=== PATIENT | male | born 1960 | race Caucasian/White ===

== ENCOUNTER 2025-02-09 10:12 | Emergency (ER) | payer OTHER, SELFPAY ==
--- NOTE | 2025-02-09 10:23 | ED.EYEPROB ---
HPI - Eye Problem General Chief complaint: Eye Problems Stated complaint: LT Eye Problems Time Seen by Provider: 02/09/25 10:29 Source: patient Mode of arrival: ambulatory Limitations: no limitations History of Present Illness HPI Narrative: 64-year-old male presented for complaint of left eye redness, swelling, and discomfort to the lower lid. Endorses matted shut this morning when he woke. Denies photophobia, vision changes, headache, rash, eye pain, injury or foreign body. Denies recent illness. Denies contacts. chief complaint: eye pain Related Data Allergies Allergy/AdvReac Type Severity Reaction Status Date / Time No Known Allergies Allergy Verified 02/09/25 10:19 Review of Systems Review of Systems: CONSTITUTIONAL: Denies body aches, fever, chills EYES:Endorses swelling, redness and pain to left lower eye; Denies visual changes, FB sensation, photophobia ENT: Denies rhinorrhea, congestion, sore throat, or otalgia. CARDIOVASCULAR: Denies chest pain, palpitations RESPIRATORY: Denies cough or dyspnea. SKIN: Denies rash, itching, or wounds. MUSCULOSKELETAL: Denies back pain, joint pain, or myalgia. NEUROLOGIC: Denies headache, numbness, tingling, or weakness. All systems reviewed & are unremarkable except as noted in HPI and below PMFSH Comments At time of signature, I have reviewed and agree with nursing past medical, surgical, social and family history unless otherwise noted. Please see nursing chart for further information. There is no relevant family history pertinent to the presenting complaint Exam Narrative: GENERAL: Well-appearing HEAD: Normocephalic, atraumatic. EYES: Left lower eye lid swelling and redness, tender, pustule noted c/w internal hordeolum, drainage noted. No conjunctival injection, PERRLA, EOMI. Lid eversion shows no FB. ENT: Mucous membranes pink and moist. No rhinorrhea. TMs baseline post surgeries bilaterally. Throat normal. Uvula midline. CHEST: Clear to auscultation. HEART: Regular rate and rhythm. SKIN: Warm, dry, no rash. Normal skin turgor. NEURO: No focal deficits. Alert and oriented x3 PSYCH: Normal affect. Course Course Emergency Course: Patient is aware of diagnosis, understands and agrees to treatment plan. Anticipatory guidance given. Patient agrees to follow-up as directed and is aware of reasons to seek care at the emergency department. Portions of this record may have been created with voice recognition software Level of Care: Express Care Visit MDM - Eye Problem MDM Narrative Medical decision making narrative: Discussed physical exam findings consistent with left internal hordeolum. Will send antibiotic for the periorbital swelling, patient is going out of town in 2 days. Advised supportive measures and signs/symptoms to go to the ER. Pt is appropriate for outpt treatment and f/u. Differential Diagnosis Differential diagnosis: Likely corneal abrasion, conjunctivitis, acute iritis and other Discharge Plan Discharge Clinical Impression: Internal hordeolum of left eye Patient Disposition: Home Condition: Stable Instructions: Antibiotic Form, [facility] (ED) Additional Instructions: Apply warm, moist compresses on the affected area frequently (for 5 to 10 minutes three to five times per day) in order to help with drainage. Massage and gentle wiping of the affected eyelid after the warm compress can also help with drainage. You can use baby shampoo to wash the eye area Take medication as directed. If the lesion does not improve within one week, please follow up with an fuel cell engineer for further management. Go to the ER for any worsening symptoms or concerns [facility] [phone] [facility] [phone] [facility] [phone] [facility] [phone] Patient Language: Fijian Prescriptions: New cephalexin 500 mg capsule 500 mg PO Q6H 5 Days Qty: 20 0RF Follow-up/Referrals: PHYSICIAN,SOOT BLOWER [Primary Care Provider] - Time of Disposition: 10:37
--- OUTSIDE RECORDS SUMMARY | 2025-02-09 10:23 | XMS_ITS | Encounter Summary ---
Author Organization [facility] Health Address [address] [facility] [place] [address] Care Team Providers Care Automation Qa Analyst Name Role Phone Roro Boles [place] KEY-TRANSITION ADVISOR Primary C are Provider Tracie Rodriguez MD Primary Care Provider [phone] Encounter Details Date Type Department Care Team (Late st Contact Info) Description 12/26/2021 Lab Requisition [facility] [address] [facility], [place] [id number] [place] [id number] [address] Social History Tobacco Use Types Packs/Day Years Used Date Smoking Tobacco: Never Assessed Sex and Gender Information Value Date Recorded Sex Assigned at Not on file Legal Sex Male 2:01 PM CDT Gender Identity Not on file Sexual Orientation Not on file documented as of this encounter Plan of Treatment Not on file documented as of this encounter Procedures Procedure Name Priority Date/Time Associated Diagnosis Comments DERMATOPATHOLOGY Routine 12/25/2021 12:0 0 AM CDT documented in this encounter Results * DERMATOPATHOLOGY (12/25/2021 12:00 AM CDT) Case Report Dermatopathology Report Case: [id number] Authorizing Provider: Brenda Hui MD Collected: 12/25/2021 12:00 AM Ordering Location: [facility] Received: 12/26/2021 02:29 PM Pathologist: Ольга Hazel MD Specimen: Skin, right upper back 2 11:16 AM T DERMATOPATHOLOGY LABORATORY Final Diagnosis Specimen A. 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 2 11:16 AM T DERMATOPATHOLOGY LABORATORY Gross Description Specimen A: Received is one formalin filled container labeled with the patient's name and designated right upper back. The specimen consists of a shave biopsy measuring [id number]. Jar 0. 11:16 AM T DERMATOPATHOLOGY LABORATORY Microscopic Description Specimen A. SKIN, right upper back: The epidermis shows parakeratosis, full thickness disorderly maturation of keratinocytes, mitoses at different levels, and dyskeratotic cells. There is prominent pigmentation in some of the keratinocytes. This case was also reviewed by Dr. Sherley Cyr, who agrees. 2 11:16 AM T DERMATOPATHOLOGY LABORATORY Disclaimer An external and internal positive and negative controls are appropriate for the histochemical, immunohistochemical and immunofluorescence stain(s) in this case (if any), except where stated explicitly. The performance characteristics of the stain(s) cited in this report were developed and its performance characteristic determined by the Dermatopathology Laboratory at [facility], directed by Dr. Jayda Cyr. These tests need not be, and therefore are not, approved by the [place] Food and Drug Administration. The tests are used for clinical purposes. Billing Codes Specimen Charges Stain Charges 11670 1 2 11:16 AM CDT DERMATOPATHOLOGY LABORATORY Embedded Images 2 11:16 AM CDT DERMATOPATHOLOGY LABORATORY Pathology/Cytolog y TISSUE SPECIMEN FROM SKIN / Unknown 12/25/2021 12/26/2021 2:29 PM CDT us Brenda Guajardo MD LAB - PATHOLOGY/CYTOLOGY ORDER JULISSA Final Result DERMATOPATHOLOGY LABORATORY [facility] - Department of Dermatology [address], 3[address] Floor [place], [place] [address] [place] [address] documented in this encounter Visit Diagnoses Not on filedocumented in this encounter Additional Health Concerns Infection Onset Date Last Indicated Resolved Time COVID-19 Under Investigation 07/17/2023 07/17/2023 07/17/2023 1:25 PM OUTPATIENT ADMITTING CLERK documented as of this encounter Care Teams Automation Qa Analyst Relationship Specialty Start Date End Date Roro Boles, GENERAL INTERNIST AND PHYSICIAN LEADER-TRANSITION ADVISOR [address] [address] PCP - General Nurse Practitioner Family 10/16/2210/28 Tracie Rodriguez MD [address] [address] PCP - General Family Medicine 11/25/22 documented as of this encounter
--- OUTSIDE RECORDS SUMMARY | 2025-02-09 10:23 | XMS_ITS | Clinical Summary ---
Author Organization [facility] Address [address] [place] [address] Care Team Providers Care Photoengraving Proofer Apprentice Name Role Phone Unavailable Primary Care Provider Unavailabl e Social History Tobacco Use Types Packs/Day Years Used Date Smoking Tobacco: Never Assessed Sex and Gender Information Value Date Recorded Sex Assigned at Not on file Legal Sex Male 11:42 AM HOMICIDE SQUAD COMMANDING OFFICER Gender Identity Not on file Sexual Orientation Not on file Plan of Treatment Health Maintenance Due Date Last Done Comments Hepatitis C Virus (HCV) Screening 1960 TdaP Immunization 1960 Colonoscopy 2005 Colorectal Cancer Screening 2005 Cologuard 2010 Immunochemical Fecal Occult Blood 2010 Pneumococcal Immunization (50+ years) (1 of 1 - PCV) 2010 Zoster Immunization (1 of 2) 2010 PSA Discussion 2015 Influenza Immunization (#1) 03/28/20242 11/2019, 05/26/2019, 06/12/2018, Additional history exists SARS-COV-2 Immunization ( - 2023-25 season) 2024 Respiratory Syncytial Virus (RSV) Immunization (Adult) (1 - 1-dose 75+ series) 2035 Hepatitis B Immunization Aged Out No longer eligible based on patient's age to complete this topic Meningococcal Immunization (ACWY) Aged Out No longer eligible based on patient's age to complete this topic Pneumococcal Immunization Combined Aged Out No longer eligible based on patient's age to complete this topic Rotavirus Immunization Aged Out No lo nger eligible based on patient's age to complete this topic
--- OUTSIDE RECORDS SUMMARY | 2025-02-09 10:23 | XMS_ITS | Encounter Summary ---
Author Organization [facility] Address [address] [facility] [address] [place] [address] Care Team Providers Care Yarder Operator Name Role Phone Sourav Barber MD Primary Care Provider [phone] Ramsey Marte MD Primary Care Provi jeannette Encounter Details Date Type Department Care Team (Late Contact Info) Description 06/16/2015 Orders Only [facility] Health Information Management [address] [place] [address] Scanning, Provider Social History Tobacco Use Types Packs/Day Years Used Date Smoking Tobacco: Never Assessed Sex and Gender Information Value Date Recorded Sex Assigned at Not on file Legal Sex Male 5:13 AM TERRITORY DEVELOPMENT MANAGER Gender Identity Not on file Sexual Orientation Not on file documented as of this encounter Plan of Treatment Not on file documented as of this encounter Procedures Procedure Name Priority Date/Time Associated Diagnosis Comments SCAN - LABS 06/16/2015 documented in this encounter Results * SCAN - LABS (06/16/2015) us Provider Scanning Final Result documented in this encounter Visit Diagnoses Not on filedocumented in this encounter Care Teams Yarder Operator Relationship Specialty [place] [address] [facility] [address] [place] [address] PCP - General 10/01/16 09/07/19 Ramsey Marte MD [address] [address] PCP - General Family Medicine 09/08/19 documented as of this encounter
--- OUTSIDE RECORDS SUMMARY | 2025-02-09 10:23 | XMS_ITS | Clinical Summary ---
Author Organization [facility] Address [address] [facility] [place] [address] Care Team Providers Care Corncob Pipes Assembler Name Role Phone Tracie Rodriguez MD Primary Care Provider [phone] [facility],non-owned Affiliates and Associated Physician Practices is amultiple site organization consisting of ambulatory clinics and hospital sitesin [place], [place], [place] and [place]. This disclosure is being madepursuant to the Care Everywhere program and may not contain all information available regarding this patient. Last updated [employer] Allergies No known active allergies Medications * Be aware that medications may not be up to date on this document. Alwaysverify current medications with the patient. No known medications Active Problems Problem Noted Date Diagnosed Date Prediabetes 10/16/2022 Overview (10/16/2022): A1C 5.7, low carb diet, continue daily exercise Low serum HDL 10/16/2022 Elevated LDL cholesterol level 10/16/2022 History of arthroplasty of left knee 08/09/2022 Mixed hyperlipidemia 09/29/2019 History of total right knee replacement 10/09/19 19 Generalized osteoarthritis 03/10/2009 Displacement of lumbar inter vertebral disc without myelopathy 02/16/2008 Immunizations Immunization Administration Dates Next Due FLU VACCINE QUAD IIV4 SPLIT 0.25 ML IM 2 FLU VACCINE TRI IIV3 SPLIT IM (FLUVIRIN) 014,04/21/2013,05/20/2012 INFLUENZA VACCINE, QUADR. (A FLURIA, FLUZONE QUADRIVALENT; 6MO+) (IIV4) 05/26/2019 INFLUENZA VACCINE, QUADR. (F LUZONE; FLULAVAL; FLUARIX; AFLURIA QUADRIVALENT; 6MO+), 0.5 ML (IIV4) 04/21/2020,06/12/2018 INFLUENZA VACCINE, TRIV. (FL UZONE; FLULAVAL; FLUARIX; AFLURIA TRIVALENT; 6MO+), 0.5 ML (IIV3) 06/10/2017,06/09/2016,06/20/2015 Family History Medical History Relation Name Comments None Known Father Diabetes; unknown type Maternal Grandfather Cancer Mother CAD (Coronary Artery Disease) Neg Hx Relation Name Status Comments Father Maternal Grandfather Mother Social History Tobacco Use Types Packs/Day Years Used Date Smoking Tobacco: Never Smokeless Tobacco: Never Tobacco Cessation:Counseling Given: Not Answered Alcohol Use Standard Drinks/Week Comments Not Currently 0 (1 standard drink = 0.6 oz pur e alcohol) PHQ-2 Answer Date Recorded Patient Health Questionnaire-2 Score 0 12/15/2023 Sex and Gender Information Value Date Recorded Sex Assigned at Not on file Legal Sex Male 2:01 PM CDT Gender Identity Not on file Sexual Orientation Not on file Last Filed Vital Signs Vital Sign Reading Time Taken Comments Blood Pressure 136/87 12/15/2023 7:13 AM CDT Pulse 60 12/15/2023 7:13 AM CDT Temperature 36.6 C (97.9 F) 12/15/2023 7:13 AM CDT Respiratory Rate 12 10/16/2022 7:17 AM CDT Oxygen Saturation 97% 12/15/2023 7:13 AM CDT Inhaled Oxygen Concentration - - Weight 102.9 kg (226 lb 12.8 oz) 12/15/2023 7:13 AM CDT Height 182.9 cm (6') 12/15/2023 7:13 AM CDT Body Mass Index 30.76 12/15/2023 7:13 AM CDT Plan of Treatment Health Maintenance Due Date Last Done Comments COLOGUARD (AGES 45-75) - COLON CA SCREENING 1960 CT COLONOGRAPHY - COLON CA SCREENING 1960 FIT - COLON CA SCREENING 1960 FLEX SIG - COLON CA SCREENING 1960 HIV SCREENING 1975 HEPATITIS C SCREENING 06/10/1978 DTAP/TDAP/TD VACCINES (1 - Tdap) 1979 PNEUMOCOCCAL VACCINE 50+ (1 of 1 - PCV) 2010 ZOSTER VACCINE (1 of 2) 2010 COVID-19 VACCINE (4 - season) 2024 07/04/2021, 11/10/2020, 10/13/2020 DEPRESSION SCREENING 07/28/2024 12/15/2023, 10/17/19 23 INFLUENZA VACCINE (#1) 2025 2, 04/21/2020, 05/26/2019, Additional history exists SCREENING FOR DIABETES 04/18/2025 2 (Done Outside Per Report) LIPID TESTING 04/18/2027 04/18/2022 (Done Outside Per Report) COLON MONITORING 07/23/2033 07/23/2023 COLONOSCOPY - COLON CA SCREENING 07/23/2033 07/23/2023 Colorectal Cancer Screening 07/23/2033 Respiratory Syncytial Virus (RSV) Vaccine Pt: or over 60 yrs (1 - 1-dose 75+ series) 2035 HEPATITIS B VACCINE Aged Out No longe r eligible based on patient's age to complete this topic HIB VACCINE Aged Out No longer eligi ble based on patient's age to complete this topic HPV VACCINE Aged Out No longer eligi ble based on patient's age to complete this topic MENINGOCOCCAL (Group B) VACCINE SHARED DECISION-MAKING Aged Out No longer eligible based on patient's age to complete this topic MENINGOCOCCAL GROUPS A/C/Y/W VACCINE Aged Out No longer eligible based on patient's age to complete this topic Insurance [facility] [employer]IG[employer] Care Teams Corncob Pipes Assembler Relationship Specialty Start Date End Date Tracie Rodriguez MD [address] [address] PCP - General Family Medicine 11/25/22
--- OUTSIDE RECORDS SUMMARY | 2025-02-09 10:23 | XMS_ITS | Clinical Summary ---
Author Organization [facility] Address [address] [place] [address] Care Team Providers Care Timber Treating Tank Operator Name Role Phone Unavailable Primary Care Provider Unavailabl e Social History Tobacco Use Types Packs/Day Years Used Date Smoking Tobacco: Never Assessed Sex and Gender Information Value Date Recorded Sex Assigned at Not on file Legal Sex Male 7:08 PM CDT Gender Identity Not on file Sexual Orientation Not on file Plan of Treatment Health Maintenance Due Date Last Done Comments Colorectal Cancer Screening Colonoscopy (10 Years) 1960 Annual Physical 1963 Hepatitis C 1978 DTaP, Tdap and Td Vaccines ( 1 - Tdap) 1979 Pneumococcal Vaccine: 50+ Ye ars (1 of 1 - PCV) 2010 Zoster Vaccines (1 of 2) 2010 COVID-19 Vaccine ( - 2023-2 5 season) 2024 RSV Immunization or 60+ Years (1 - 1-dose 75+ series) 2035 Meningococcal B Vaccine Aged Out No l onger eligible based on patient's age to complete this topic Meningococcal Vaccine Aged Out No lucrecia anam eligible based on patient's age to complete this topic RSV Immunizations Under 20 Months Aged Out No longer eligible based on patient's age to complete this topic
--- OUTSIDE RECORDS SUMMARY | 2025-02-09 10:23 | XMS_ITS | Clinical Summary ---
Author Organization [facility] Address [address] [place] [address] Care Team Providers Care Lens Grinder Name Role Phone Ramsey Marte MD Primary Care Provi jeannette Allergies No known active allergies Medications No known medications Active Problems Problem Noted Date Diagnosed Date Mixed hyperlipidemia 09/29/2019 Class 1 obesity due to exces s calories with body mass index (BMI) of 30.0 to 30.9 in adult 09/29/2019 Overview (09/29/2019): BMI Follow-up includes: education provided. Immunizations Immunization Administration Dates Next Due Influenza, Quadrivalent, Spl it, Preservative Free, Intramuscular 05/26/2019 Surgical History Surgery Date Site/Laterality Comments KNEE ARTHROPLASTY 07/28/2016 - 07/27/2017 KNEE ARTHROSCOPY W/ ACL RECONSTRUCTION 07/28/2011 - 06/29 KNEE ARTHROSCOPY W/ MENISCAL REPAIR HERNIA REPAIR Medical History Medical History Date Comments Osteoarthritis Right knee Anesthesia Patient reports no anesthesia problems Patient reports no family history of anesthesia problems Family History Medical History Relation Name Comments Cancer Father Arthritis Mother No Known Problems Other 3 children No Known Problems Sister 2 Relation Name Status Comments Father Mother Other 3 children Alive Sister 2 Alive Social History Tobacco Use Types Packs/Day Years Used Date Smoking Tobacco: Never Smokeless Tobacco: Never Alcohol Use Standard Drinks/Week Comments No 0 (1 standard drink = 0.6 oz pur e alcohol) PHQ-2 Answer Date Recorded PHQ-2 Total Score (If total score is 3 or more points, staff should administer the PHQ-9) 0 09/29/2019 Sex and Gender Information Value Date Recorded Sex Assigned at Not on file Legal Sex Male 5:13 AM DETECTIVE PRIVATE EYE Gender Identity Not on file Sexual Orientation Not on file Obstetrics History Last Filed Vital Signs Vital Sign Reading Time Taken Comments Blood Pressure 118/80 09/29/2019 2:31 PM DETECTIVE PRIVATE EYE Pulse 68 09/29/2019 2:31 PM DETECTIVE PRIVATE EYE Temperature 36.5 C (97.7 F) 09/29/2019 2:31 PM DETECTIVE PRIVATE EYE Respiratory Rate 16 09/29/2019 2:31 PM DETECTIVE PRIVATE EYE Oxygen Saturation 97% 09/29/2019 2:31 PM DETECTIVE PRIVATE EYE Inhaled Oxygen Concentration - - Weight 103 kg (227 lb) 09/29/2019 2:31 PM DETECTIVE PRIVATE EYE Height 182.9 cm (6') 09/29/2019 2:31 PM DETECTIVE PRIVATE EYE Body Mass Index 30.79 09/29/2019 2:31 PM DETECTIVE PRIVATE EYE Plan of Treatment Not on file Medical Devices Implanted Type Area Contract Accountant Device Identifier Shelf Expiration Date Model / Serial / Lot Cement Bone Simplex P Radiopaque Full Dose Sterile - [id number] Implanted:Qty: 3 on 10/03/2017 by Ramsey Su MD at [facility] Right: Knee [employer] 02/25/2020 6191-1-010 / / [id number] Component Femoral Triathlon Cocr 7 Knee Right Total Stabilize - [id number] Implanted:Qty: 1 on 10/03/2017 by Ramsey Su MD at [facility] Right: Knee [employer] 06/30/2021 5512-F-702 / / [id number] Augment Femoral Triathlon 7 H5 Mm Knee Right Total Stabilize - [id number] Implanted:Qty: 1 on 10/03/2017 by Ramsey Su MD at [facility] Right: Knee [employer] 08/26/2020 5540-A-702 / / [id number] Insert Tibial Triathlon X3 6 H11 Mm Knee Total Stabilize Plus - [id number] Implanted:Qty: 1 on 10/03/2017 by Ramsey Su MD at [facility] Right: Knee [employer] 01/08/2021 5537-G-611 / / [id number] Cement Bone Simplex P Radiopaque Full Dose Sterile - [id number] Implanted:Qty: 2 on 10/03/2017 by Ramsey Su MD at [facility] Right: Knee [employer] 02/25/2020 6191-1-010 / / [id number] Restrictor Cement Large Cameron Od30 Mm Hip Revision Plug - [id number] Implanted:Qty: 1 on 10/03/2017 by Ramsey Su MD at [facility] Right: Knee [employer] 11/14/2018 G344-3669 / / [id number] Augment Triathlon Sym Cone Size E - [id number] Implanted:Qty: 1 on 10/03/2017 by Ramsey Su MD at [facility] Right: Knee [employer] 02/10/2022 5549-A-150 / / [id number] Augment Tibial Triathlon 6 H5 Mm Right Medial Left Lateral Total Stabilize - [id number] Implanted:Qty: 1 on 10/03/2017 by Ramsey Su MD at [facility] Right: Knee [employer] 08/08/2021 5545-A-602 / / [id number] Augment Tibial Triathlon 6 H5 Mm Left Medial Right Lateral Total Stabilize - [id number] Implanted:Qty: 1 on 10/03/2017 by Ramsey Su MD at [facility] Right: Knee [employer] 01/09/2022 5545-A-601 / / [id number] Stem Femoral Triathlon Titanium L150 Mm Od19 Mm Knee Cementless Total Stabilize - [id number] Implanted:Qty: 1 on 10/03/2017 by Ramsey Su MD at [facility] Right: Knee [employer] 01/14/2019 5566-S-019 / / [id number] Baseplate Tibial Triathlon Cocr 6 Cameron Knee Cemented Total Stabilize - [id number] Implanted:Qty: 1 on 10/03/2017 by Ramsey Su MD at [facility] Right: Knee [employer] 04/02/2022 5521-B-600 / / [id number] Stem Femoral Triathlon Cocr L100 Mm Od15 Mm Knee Cemented Total Stabilize - [id number] Implanted:Qty: 1 on 10/03/2017 by Ramsey Su MD at [facility] Right: Knee [employer] 07/13/2022 5560-S-215 / / [id number] Insurance [employer] OPEN ACCESS Advance Directives For more information, please contact: [phone] * Full Code (Latest Code Status on File) Date Activated Date Inactivated Comments 10/03/2017 4:47 PM 10/04/2017 1:53 PM Care Teams Lens Grinder Relationship Specialty Start Date End Date Ramsey Marte MD [address] [place] [address] PCP - General Family Medicine 09/08/19
--- OUTSIDE RECORDS SUMMARY | 2025-02-09 10:23 | XMS_ITS | Referral Summary ---
Author Organization [facility] Address [address] [place] [address] Care Team Providers Care Size Changer Name Role Phone Ramsey Marte MD Primary [...] Quadrivalent, Spl it, Preservative Free, Intramuscular 05/26/2019 Social History Tobacco Use Types Packs/Day Years [...] on file Legal Sex Male 5:13 AM PRINTING PRESS OPERATOR APPRENTICE Gender Identity Not on file Sexual Orientation Not on file Last Filed Vital Signs Vital Sign Reading Time Taken Comments Blood Pressure 118/80 09/29/2019 2:31 PM PRINTING PRESS OPERATOR APPRENTICE Pulse 68 09/29/2019 2:31 PM PRINTING PRESS OPERATOR APPRENTICE Temperature 36.5 C (97.7 F) 09/29/2019 2:31 PM PRINTING PRESS OPERATOR APPRENTICE Respiratory Rate 16 09/29/2019 2:31 PM PRINTING PRESS OPERATOR APPRENTICE Oxygen Saturation 97% 09/29/2019 2:31 PM PRINTING PRESS OPERATOR APPRENTICE Inhaled Oxygen Concentration - - Weight 103 kg (227 lb) 09/29/2019 2:31 PM PRINTING PRESS OPERATOR APPRENTICE Height 182.9 cm (6') 09/29/2019 2:31 PM PRINTING PRESS OPERATOR APPRENTICE Body Mass Index 30.79 09/29/2019 2:31 PM PRINTING PRESS OPERATOR APPRENTICE Plan of Treatment Not on file Medical Devices Implanted Type Area Scrap Cutter Device Identifier Shelf Expiration Date Model / Serial / Lot Cement Bone Simplex P Radiopaque Full Dose Sterile - [id number] Implanted:Qty: 3 on 10/03/2017 by Ramsey Su MD at [facility] Right: Knee [employer] 02/25/2020 6191-1-010 / / [id number] Component Femoral Triathlon Cocr 7 Knee Right Total Stabilize - [id number] Implanted:Qty: 1 on 10/03/2017 by Ramsey Su MD at [facility] Right: Knee [employer] 06/30/2021 5512-F-702 / / [id number] Augment Femoral Triathlon 7 H5 Mm Knee Right Total Stabilize - [id number] Implanted:Qty: 1 on 10/03/2017 by Ramsey Su MD at [facility] Right: Knee [employer] 08/26/2020 5540-A-702 / / [id number] Insert Tibial Triathlon X3 6 H11 Mm Knee Total Stabilize Plus - [id number] Implanted:Qty: 1 on 10/03/2017 by Ramsey Su MD at [facility] Right: Knee [employer] 01/08/2021 5537-G-611 / / [id number] Cement Bone Simplex P Radiopaque Full Dose Sterile - [id number] Implanted:Qty: 2 on 10/03/2017 by Ramsey Su MD at [facility] Right: Knee [employer] 02/25/2020 6191-1-010 / / [id number] Restrictor Cement Large [place] Od30 Mm Hip Revision Plug - [id number] Implanted:Qty: 1 on 10/03/2017 by Ramsey Su MD at [facility] Right: Knee [employer] 11/14/2018 B346-9525 / / [id number] Augment Triathlon Sym Cone Size E - [id number] Implanted:Qty: 1 on 10/03/2017 by Ramsey Su MD at [facility] Right: Knee [employer] 02/10/2022 5549-A-150 / / [id number] Augment Tibial Triathlon 6 H5 Mm Right Medial Left Lateral Total Stabilize - [id number] Implanted:Qty: 1 on 10/03/2017 by Ramsey Su MD at [facility] Right: Knee [employer] 08/08/2021 5545-A-602 / / [id number] Augment Tibial Triathlon 6 H5 Mm Left Medial Right Lateral Total Stabilize - [id number] Implanted:Qty: 1 on 10/03/2017 by Ramsey Su MD at [facility] Right: Knee [employer] [facility] 01/09/2022 5545-A-601 / / [id number] Stem Femoral Triathlon Titanium L150 Mm Od19 Mm Knee Cementless Total Stabilize - [id number] Implanted:Qty: 1 on 10/03/2017 by Ramsey Su MD at [facility] Right: Knee [employer] [facility] 01/14/2019 5566-S-019 / / [id number] Baseplate Tibial Triathlon Cocr 6 [place] Knee Cemented Total Stabilize - [id number] Implanted:Qty: 1 on 10/03/2017 by Ramsey Su MD at [facility] Right: Knee [employer] [facility] 04/02/2022 5521-B-600 / / [id number] Stem Femoral Triathlon Cocr L100 Mm Od15 Mm Knee Cemented Total Stabilize - [id number] Implanted:Qty: 1 on 10/03/2017 by Ramsey Su MD at [facility] Right: Knee [employer] 07/13/2022 5560-S-215 / / [id number] Insurance [employer] OPEN ACCESS Advance Directives For more information, please contact: [phone] * Full Code (Latest Code Status on File) Date Activated Date Inactivated Comments 10/03/2017 4:47 PM 10/04/2017 1:53 PM Care Teams Size Changer Relationship Specialty Start Date End Date Ramsey Marte MD [address] [place] [address] PCP - General Family Medicine 09/08/19
[2025-02-09 10:25] VITALS: BP 146/98; PULSE 60; RESP 18; TEMP 36.3; O2SAT 97
== END 2025-02-09 10:38 | disposition home or self-care (01) ==
PROVIDERS: Emergency Provider Nurse Practitioner Family
DX: H00.025 Hordeolum internum left lower eyelid (principal); M19.90 Unspecified osteoarthritis, unspecified site; Z96.653 Presence of artificial knee joint, bilateral
CPT/HCPCS: 99203; G0463